=== PATIENT | female | born 1985 | race Caucasian/White ===

== ENCOUNTER → 2018-03-29 12:30 | Outpatient (CLI) | payer BC, SELFPAY ==
[2018-03-29 14:24] LABS: Hemoglobin A1c 5.5 % (4.2-6.3)
[2018-03-29 14:26] LABS: Thyroid Stim Hormone (TSH) 1.98 uIU/mL (0.358-3.74)
== END ==
PROVIDERS: Family Provider Family Medicine; PCP Family Medicine; Referring Provider Family Medicine; Visit Provider Family Medicine
DX: R63.5 Abnormal weight gain (principal)
CPT/HCPCS: 36415; 83036; 84443

== ENCOUNTER → 2018-10-02 11:54 | Outpatient (CLI) | payer OTHER, SELFPAY ==
--- NOTE | 2018-10-02 12:00 | US_ITS ---
STUDY: THYROID ULTRASOUND REASON FOR EXAM: Female, 33 years old. Thyromegaly. TECHNIQUE: Ultrasound evaluation of the thyroid was performed with real-time and static jha-scale imaging. COMPARISON: None. FINDINGS: RIGHT LOBE: The right lobe of the thyroid gland measures 5.2 x 1.6 x 1.4 cm. There is a homogeneous echotexture. 3 small well-defined hypoechoic, presumably cystic lesions are identified. The largest is in the lateral upper pole, measuring 6.1 x 4.4 x 3.7 mm and containing a small eccentric nodule. A second is in the anterior mid body of the gland, measuring 3.5 x 2.7 x 1.8 mm. A third is in the posterior mid to upper thyroid measuring 4 x 2.7 x 2.7 mm. This also has eccentric internal nodule. LEFT LOBE: The left lobe of the thyroid gland measures 5.0 x 1.7 x 1.6 cm. There is a homogeneous echotexture. 3 well-defined isoechoic, presumably cystic lesions are seen. One is in the mid to upper pole, measuring 6.0 x 4.1 x 4.2 mm, containing 2 small hyperechoic stones or nodules. A similar-appearing 4.2 x 4.0 x 4.4 mm lesion is seen at the tip of the lower pole. A third 5.2 x 2.8 x 4.1 mm hypoechoic lesion with 2 focal internal echogenicities seen at the posterior midpole. ISTHMUS: The isthmus measures 3 mm. The regional lymph nodes are normal. US/Thyroid IMPRESSION: Bilateral complicated cystic lesions in the thyroid gland, as described. Electronically Signed: Perfecto Cole MD at 19:57 EDT , Service support ,
== END ==
PROVIDERS: Family Provider Family Medicine; PCP Family Medicine; Referring Provider Family Medicine; Visit Provider Family Medicine
DX: E01.0 Iodine-deficiency related diffuse (endemic) goiter (principal)
CPT/HCPCS: 76536

== ENCOUNTER → 2018-10-15 08:43 | Outpatient (CLI) | payer OTHER, SELFPAY ==
--- NOTE | 2018-10-15 08:45 | NM_ITS ---
CLINICAL: 33-year-old female with reported history of thyroid nodularity. I-123 THYROID UPTAKE and SCAN COMPARISON: Thyroid ultrasound report 10/02/2018 FINDINGS: The patient was administered a 306 uCi I-123 capsule by mouth. The 4-hour I-123 radioactive iodine thyroidal uptake was calculated to be 15.9 % (normal 5 to 25 %). The 24-hour I-123 radioactive iodine thyroidal uptake was calculated to be 41.1 % (normal 5 to 40 %). The I-123 thyroid scan demonstrates homogeneous radiopharmaceutical concentration throughout both lobes of a prominent sized U-shaped thyroid gland. There are no colloidal parenchymal hypofunctioning-cold nodules noted in either lobe of the thyroid gland. NM/Thyroid Uptake Single or Mult IMPRESSION: 1. NORMAL 4- and MILDLY ELEVATED ABNORMAL 24-hour I-123 radioactive iodine thyroidal uptakes. 2. 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 Correlation with in vitro thyroid function studies is recommended. 3. There are no hypofunctioning-cold nodules demonstrated in the right and left thyroid lobes as described above. Electronically Signed: Long Allred DO at 23:20 EDT Tel , Service support ,
== END ==
PROVIDERS: Family Provider Family Medicine; PCP Family Medicine; Referring Provider Family Medicine; Visit Provider Family Medicine
DX: E04.1 Nontoxic single thyroid nodule (principal)
CPT/HCPCS: 78012; A9516

== ENCOUNTER → 2019-05-18 09:41 | Outpatient (CLI) | payer OTHER, SELFPAY ==
[2017-04-17 07:58] VITALS: BMI 32.8
[2019-05-18 10:36] LABS: Anion Gap 1 (5-15); BUN 11 mg/dL (7-18); BUN/Creat Ratio 11.8 RATIO (10-20); Calcium,Total 9.1 mg/dL (8.5-10.1); Chloride 106 mmol/L (98-107); Cholesterol 167 mg/dL (200); Creatinine, Serum 0.93 mg/dL (0.55-1.02); EST Glomerular Filtration Rate 74 mL/min (>60); Est Glom Filt Rate - Afr Amer 89 mL/min (>60); Glucose 89 mg/dL (74-106); High Density Lipoprotein 59 mg/dL; Potassium 4.3 mmol/L (3.5-5.1); Sodium Level 138 mmol/L (136-145); Thyroid Stim Hormone (TSH) 2.25 uIU/mL (0.358-3.74); Triglycerides 95 mg/dL; Very Low Density Lipoprotein 19 mg/dL (5-40)
== END ==
PROVIDERS: Family Provider Family Medicine; PCP Family Medicine; Referring Provider Family Medicine; Visit Provider Family Medicine
DX: E01.0 Iodine-deficiency related diffuse (endemic) goiter (principal); Z13.220 Encounter for screening for lipoid disorders; Z13.1 Encounter for screening for diabetes mellitus
CPT/HCPCS: 36415; 80048; 80061; 84443

== ENCOUNTER → 2019-05-20 11:57 | Outpatient (CLI) | payer OTHER, SELFPAY ==
[2017-04-17 07:58] VITALS: BMI 32.8
[2019-05-20 15:20] LABS: Vitamin D,25 Hydroxy 12.2 ng/mL (29.95-100.01)
== END ==
PROVIDERS: Family Provider Family Medicine; PCP Family Medicine; Referring Provider Family Medicine; Visit Provider Family Medicine
DX: Z13.21 Encounter for screening for nutritional disorder (principal)
CPT/HCPCS: 36415; 82306

== ENCOUNTER → 2019-06-07 15:19 | Outpatient (CLI) | payer OTHER, SELFPAY ==
[2017-04-17 07:58] VITALS: BMI 32.8
[2019-06-13 13:44] LABS: HPV Reflexed? NOT INDICATED
== END ==
PROVIDERS: Visit Provider Obstetrics & Gynecology
DX: Z12.4 Encounter for screening for malignant neoplasm of cervix (principal)
CPT/HCPCS: 88175; G0145

== ENCOUNTER → 2020-01-30 | Outpatient (CLI) | payer OTHER, SELFPAY ==
[2017-04-17 07:58] VITALS: BMI 32.8
[2020-01-30 12:50] LABS: Vitamin D,25 Hydroxy 41.8 ng/mL
== END | disposition home or self-care (01) ==
LOC: LAB 11:54
PROVIDERS: PCP Family Medicine; Referring Provider Family Medicine; Visit Provider Family Medicine
DX: E55.9 Vitamin D deficiency, unspecified (principal)
CPT/HCPCS: 36415; 82306

== ENCOUNTER → 2023-06-06 | Outpatient (CLI) | payer OTHER, SELFPAY ==
--- OUTSIDE RECORDS SUMMARY | 2023-06-06 12:40 | XMS RPT_ITS | CCD ---
Author Name Unknown Address [facility] [address] [place] [address] Organization [facility] Care Team Providers Care Stencil Inspector Name Role Phone HEATHER JULOI, DR OSPINA Primary Care Physician Unavailable Primary Care Provider Unavailabl e Allergies Allergy Classification Reported Allergen(s) Allergy Type Date of Onset Reaction(s) Facility (6 sources) Amoxicillin; Translations: [amoxicillin] Drug Allergy 12-10-2022 [facility] (2 sources) Iodine; Translations: [iodine] Drug Allergy [facility] Medications Current Medications Medication Drug Class(es) Dates Sig (Normalized) Sig (Original) M.V.I. Adult (2 sources) Start: 07-12-2016 M.V.I. Adult Start Date: 07/12/16 Status: Ordered oxyCODONE hydrochloride 5 mg oral tablet (1 source) Opioid Agonist Start: 07-03-2021 End: 07-05-2021 oxyCODONE 5 mg oral tablet ( IMMEDIATE release ) Dose : 5 mg = 1 tab(s), Oral, q6h, X 2 day(s), # 7 tab(s), 0 Refill(s), 07/05/21 22:12:00 EST, Elbow dislocation, 110 Start Date: 07/03/21 Stop Date: 07/05/21 Status: Ordered Completed/Discontinued Medications Medication Drug Class(es) Dates Sig (Normalized) Sig (Original) 24 hr buPROPion hydrochloride 150 mg extended release oral tablet (3 sources) Aminoketone Start: 11-07-2022 buPROPion XL (WELLBUTRIN XL) 150 mg 24 hr tablet escitalopram 10 mg oral tablet (3 sources) Serotonin Reuptake Inhibitor take 1 tablet by mouth once daily escitalopram oxalate (LEXAPRO) 10 mg tablet Take 10 mg by mouth once daily. 0 Active Problems Problem Classification Problem Date Documented Date Episodic/Chronic Immunizations and screening for infectious disease (2 sources) Patient encounter status; Translations: [Encounter for screening for infections with a predominantly sexual mode of transmission] Onset: 12-12-2022 12-10-2022 Episodic Joint disorders and dislocations; trauma-related (1 source) Dislocation of elbow joint; Translations: [Unspecified dislocation of unspecified ulnohumeral joint, initial encounter] Onset: 07-03-2021 Episodic Other female genital disorders (1 source) Vaginal lesion; Translations: [Other specified noninflammatory disorders of vagina] 12-10-2022 Episodic Other non-traumatic joint disorders (1 source) Elbow joint pain; Translations: [Pain in left elbow] Episodic Results Test Name Value Interpretation Reference Range Facil ity Vital Signs Date Time Vital Sign Value Performing Clinician Facility 12-10-2022 12:22-0400 Body temperature 97.39 [degF] Krislyn Aberegg PA Work Phone: [facility] 12-10-2022 12:22-0400 Body weight 105.51 kg Krislyn Aberegg PA Work Phone: [facility] 12-10-2022 12:22-0400 Diastolic blood pressure 80 mm[Hg] Krislyn Aberegg PA Work Phone: [facility] 12-10-2022 12:22-0400 Heart rate 81 /min Krislyn Aberegg PA Work Phone: [facility] 12-10-2022 12:22-0400 Respiratory rate 21 /min Krislyn Aberegg PA Work Phone: [facility] 12-10-2022 12:22-0400 SaO2% (BldA) [Mass fraction] 98 % Krislyn Aberegg PA Work Phone: [facility] 12-10-2022 12:22-0400 Systolic blood pressure 122 mm[Hg] Krislyn Aberegg PA Work Phone: [facility] 07-03-2021 20:57-0500 Body temperature 97.88 [degF] DR LEVI HOOKER MD [facility] 07-03-2021 20:57-0500 Body weight [address] LEVI HOOKER MD [facility] 07-03-2021 20:57-0500 Diastolic blood pressure 65 mm[Hg] DR LEVI HOOKER MD [facility] 07-03-2021 20:57-0500 Heart rate 64 /min DR LEVI HOOKER MD [facility] 07-03-2021 20:57-0500 Respiratory rate 18 /min DR LEVI HOOKER MD [facility] 07-03-2021 20:57-0500 Systolic blood pressure 105 mm[Hg] DR LEVI HOOKER MD [facility] Encounters Encounter Date Encounter Type Care Provider Facility Start: 12-13-2022 Telephone encounter Ceasar richardson APRN.[facility] Work Phone: [facility] Plan of Treatment Date Care Activity Detail Author Start: 01-27-2023 Influenza vaccination INFLUENZA (#1) [facility] Start: 12-10-2022 End: 02-09-2023 Hepatitis B virus surface Ag [Presence] in Serum HEP B SURF AG SCRN Lab Routine Screening for STD (sexually transmitted disease) Expected: 12/10/2022, Expires: 02/09/2023 [facility] Work Phone: Payers Date Payer Category Payer Private Health [facility] [employer] PPO [id number] 2022-Present [phone] [address] [place] [id number] [facility] [id number] 2022 Private Health Insurance [facility] [id number] Social History Date Type Detail Facility Start: 07-03-2021 Heavy tobacco smoker (finding) [facility] Sex Assigned At [facility] Start: 12-10-2022 Tobacco smoking stat [facility] Ex-smoker [facility] History of tobacco use Current smoker [facility] History of tobacco use Cigarette Smoker C [facility] History of tobacco use Passive smoker [facility] Start: 12-10-2022 Tobacco use and exposure Smokeless tobacco non-user [facility] Start: 12-10-2022 History of Social function [facility] Start: 12-10-2022 Tobacco use panel [facility] Start: 1985 Sex Assigned At Not on file C [facility] Note 12-13-2022 Telephone Encounter - Jenny Simons LPN - 12/13/2022 8:29 AM EDTTelephone Encounter - Jaclyn Bravo - 12/13/2022 8:06 AM EDTTelephone Encounter - Ceasar De La Torre APRN.[facility] - 12/13/2022 7:10 AM EDT Note Date & Type Note Facility 12-13-2022 Miscellaneous Notes Formattin g of this note might be different from the original. Pt was notified of results & voiced understanding. Jenny Simons LPN Left message for patient to return call. Jaclyn Bravo Please notify that syphilis, hep B/C, HIV were negative. F/u as discussed during visit. documented in this encounter [facility] Note 12-11-2022 Telephone Encounter - Lucero Ponce MA - 12/11/2022 9:32 AM EDTTelephone Encounter - Breana Lord LPN - 12/11/2022 9:14 AM EDT Note Date & Type Note Facility 12-11-2022 Miscellaneous Notes Formattin g of this note might be different from the original. Pt called back and was notified of the results. Pt verbalized understanding. Lucero Ponce MA Left message to return call Please let patient know she is negative for chlamydia, gonorrhea, trichomonas, Ethel and herpes. We are awaiting blood test results. documented in this encounter [facility] Progress note 12-10-2022 Note Date & Type Note Facility 12-10-2022 Note HNO ID: [id number] Author: BRADLEY Razo Service: ? Author Type: Physician Valet Service Attendant Type: Progress Notes Filed: 12/10/2022 12:36 PM Note Text: This note was created using [employer]. Subjective Lesli Cristobal is a 37 year old female. HPI 37-year-old female presents for STD check. Patient states that her significant other has a bump on his penis and she is concerned it may be herpes. Patient states that she had a small bump about a week ago, but it is now improved. She thought it was just a cut from shaving. She states that she has not had any drainage. No vaginal discharge. She denies any history of herpes or STDs. No concern for , has an IUD. No other complaints. Review of Systems Constitutional: Negative for chills and fever. HENT: Negative for congestion, ear pain and sore throat. Respiratory: Negative for cough and shortness of breath. Cardiovascular: Negative for chest pain. Gastrointestinal: Negative for diarrhea and vomiting. Genitourinary: Positive for genital sores (Small bump that has resolved in the past week.). Negative for difficulty urinating, dysuria, urgency, vaginal bleeding, vaginal discharge and vaginal pain. Objective BP 122/80 Pulse 81 Temp 36.3 ?C (97.4 ?F) Resp 21 Wt 105.5 kg (232 lb 9.6 oz) SpO2 98% Physical Exam Vitals and nursing note reviewed. Exam conducted with a bit setter present. Constitutional: General: She is not in acute distress. Appearance: Normal appearance. She is not toxic-appearing. Cardiovascular: Rate and Rhythm: Normal rate and regular rhythm. Pulmonary: Effort: Pulmonary effort is normal. Breath sounds: Normal breath sounds. Genitourinary: Pubic Area: No rash. Labia: Right: No rash or lesion. Left: No rash or lesion. Vagina: Vaginal discharge (Small amount of physiologic discharge present) present. No erythema or tenderness. Cervix: No cervical motion tenderness. Adnexa: Right adnexa normal and left adnexa normal. Comments: Small amount of white physiologic vaginal discharge. No CMT. No adnexal tenderness. IUD strings in place. Small bump noted on mons pubis appears more like a scarred area. No vesicular lesions present Skin: General: Skin is warm and dry. Neurological: Mental Status: She is alert. Assessment and Plan ASSESSMENT/PLAN: 1. Screening for STD (sexually transmitted disease) - ICD9: V74.5, ICD10: Z11.3 (primary diagnosis) -Denies concern for . Has IUD. No symptoms. -Treat based on results. - GONORRHEA/CHLAMYDIA NAAT - SYPHILIS TOTAL W/REFLEX - HIV 1 2 COMBO(AG/AB),WITH REFLEX TO DIFFERENTIATION - HEPATITIS C ANTIBODY IA WITH CONFIRMATION - HEP B SURF AG SCRN - HSV1,2/VZV NAAT LESION - ETHEL/TRICHOMONAS NAAT 2. Vaginal lesion - ICD9: 623.8, ICD10: N89.8 -Small scarlike lesion over upper mons pubis area. Patient states has been present for a week and is improving. Did swab this area for herpes as her significant other has genital lesions currently. -Await result. Out of viral window for treatment. -Advised if any new lesions, return for evaluation and treatment. Diagnosis and treatment plan were discussed and questions were answered to the patient's satisfaction. Pt acknowledged understanding of concepts and follow up plan. Specific signs and symptoms that would indicate the need for higher level of care were discussed in detail warranting prompt ER evaluation. BRADLEY Razo [facility] History of Present illness Narrative 12-10-2022 Jessica Brady PA - 12/10/2022 12:31 PM EDT Note Date & Type Note Facility 12-10-2022 History of Presen t illness Narrative Images from the original note were not included. This note was created using [employer]. Subjective Lesli Cristobal is a 37 year old female. HPI 37-year-old female presents for STD check. Patient states that her significant other has a bump on his penis and she is concerned it may be herpes. Patient states that she had a small bump about a week ago, but it is now improved. She thought it was just a cut from shaving. She states that she has not had any drainage. No vaginal discharge. She denies any history of herpes or STDs. No concern for , has an IUD. No other complaints. Review of Systems Constitutional: Negative for chills and fever. HENT: Negative for congestion, ear pain and sore throat. Respiratory: Negative for cough and shortness of breath. Cardiovascular: Negative for chest pain. Gastrointestinal: Negative for diarrhea and vomiting. Genitourinary: Positive for genital sores (Small bump that has resolved in the past week.). Negative for difficulty urinating, dysuria, urgency, vaginal bleeding, vaginal discharge and vaginal pain. Objective BP 122/80 Pulse 81 Temp 36.3 C (97.4 F) Resp 21 Wt 105.5 kg (232 lb 9.6 oz) SpO2 98% Physical Exam Vitals and nursing note reviewed. Exam conducted with a bit setter present. Constitutional: General: She is not in acute distress. Appearance: Normal appearance. She is not toxic-appearing. Cardiovascular: Rate and Rhythm: Normal rate and regular rhythm. Pulmonary: Effort: Pulmonary effort is normal. Breath sounds: Normal breath sounds. Genitourinary: Pubic Area: No rash. Labia: Right: No rash or lesion. Left: No rash or lesion. Vagina: Vaginal discharge (Small amount of physiologic discharge present) present. No erythema or tenderness. Cervix: No cervical motion tenderness. Adnexa: Right adnexa normal and left adnexa normal. Comments: Small amount of white physiologic vaginal discharge. No CMT. No adnexal tenderness. IUD strings in place. Small bump noted on mons pubis appears more like a scarred area. No vesicular lesions present Skin: General: Skin is warm and dry. Neurological: Mental Status: She is alert. Assessment and Plan ASSESSMENT/PLAN: 1. Screening for STD (sexually transmitted disease) - ICD9: V74.5, ICD10: Z11.3 (primary diagnosis) -Denies concern for . Has IUD. No symptoms. -Treat based on results. - GONORRHEA/CHLAMYDIA NAAT - SYPHILIS TOTAL W/REFLEX - HIV 1 2 COMBO(AG/AB),WITH REFLEX TO DIFFERENTIATION - HEPATITIS C ANTIBODY IA WITH CONFIRMATION - HEP B SURF AG SCRN - HSV1,2/VZV NAAT LESION - ETHEL/TRICHOMONAS NAAT 2. Vaginal lesion - ICD9: 623.8, ICD10: N89.8 -Small scarlike lesion over upper mons pubis area. Patient states has been present for a week and is improving. Did swab this area for herpes as her significant other has genital lesions currently. -Await result. Out of viral window for treatment. -Advised if any new lesions, return for evaluation and treatment. Diagnosis and treatment plan were discussed and questions were answered to the patient's satisfaction. Pt acknowledged understanding of concepts and follow up plan. Specific signs and symptoms that would indicate the need for higher level of care were discussed in detail warranting prompt ER evaluation. BRADLEY Razo documented in this encounter [facility] Discharge instructions 07-04-2021 Note Date & Type Note Facility 07-04-2021 Hospital Discharg e instructions Patient Education 07/03/2021 22:19:29 ED Moderate (Conscious) Sedation (03/2018) (Custom) Adult Moderate (Conscious) Sedation Discharge Instructions Refer to this sheet in the next few weeks. These instructions provide you with information on caring for yourself after your procedure. Your health care provider may also give you more specific instructions. Your treatment has been planned according to current medical practices, but problems sometimes occur. Call your health care provider if you have any problems or questions after your procedure. WHAT TO EXPECT AFTER THE PROCEDURE After your procedure: You may feel sleepy, clumsy, and have poor balance for several hours. Vomiting may occur if you eat too soon after the procedure. HOME CARE INSTRUCTIONS Do not participate in any activities where you could become injured for at least 24 hours. Do not: ? Drive. ? Swim. ? Ride a bicycle. ? Operate heavy machinery. ? Cook. ? Use power tools. ? Climb ladders. ? Work from a high place. Do not make important decisions or sign legal documents until you are improved. If you vomit, drink water, juice, or soup when you can drink without vomiting. Make sure you have little or no nausea before eating solid foods. Only take moqn-nqq-nbopjqn or prescription medicines for pain, discomfort, or fever as directed by your health care provider. Make sure you and your family fully understand everything about the medicines given to you, including what side effects may occur. You should not drink alcohol, take sleeping pills, or take medicines that cause drowsiness for at least 24 hours. If you smoke, do not smoke without supervision. If you are feeling better, you may resume normal activities 24 hours after you were sedated. Keep all appointments with your health care provider. SEEK MEDICAL CARE IF: Your skin is pale or bluish in color. You continue to feel nauseous or vomit. Your pain is getting worse and is not helped by medicine. You have bleeding or swelling. You are still sleepy or feeling clumsy after 24 hours. SEEK IMMEDIATE MEDICAL CARE IF: You develop a rash. You have difficulty breathing. You develop any type of allergic problem. You have a fever. MAKE SURE YOU: Understand these instructions. Will watch your condition. Will get help right away if you are not doing well or get worse. Document Released: 03/05/2014 Document Reviewed: 03/05/2014 ExitCare Patient Information 2015 [email or web address]. This information is not intended to replace advice given to you by your health care provider. Make sure you discuss any questions you have with your health care provider. 07/03/2021 22:19:29 Elbow Dislocation Elbow Dislocation An elbow dislocation may occur after a fall onto an outstretched arm or in a car accident. When the hand hits a hard surface, the force is sent to the elbow. This tears ligaments and forces the bones out of the joint. Usually no bones are broken. But the nearby nerves and blood vessels can be damaged. Once the joint is put back in place, it will take about 6 weeks for the ligaments to heal. For simple dislocations, you will use a splint or sling for the first few weeks. You will need elgas-ev-ughywt exercises or physical therapy early in your recovery. This will prevent the elbow joint from getting stiff. Later, you may need strengthening exercises. In more severe cases, you may need surgery to realign the joint and repair the torn ligaments or broken bones. Most elbow dislocations heal fully. But there is some risk for arthritis or loss of full range of motion in that joint. Home care Follow these guidelines when caring for yourself at home: Keep your arm elevated to reduce pain and swelling. When sitting or lying down keep your arm above the level of your heart. You can do this by placing your arm on a pillow that rests on your chest or on a pillow at your side. This is most important during the first 2 days (48 hours) after the injury. Put an ice pack on the injured area. Do this for 20 minutes every 1 to 2 hours the first day. You can make an ice pack by wrapping a plastic bag of ice cubes in a thin towel. As the ice melts, be careful that the cast or splint doesn t get wet. You can put the ice pack inside the sling and directly over the splint or cast. Continue using the ice pack 3 to 4 times a day for the next 2 days. Then use the ice pack as needed to ease pain and swelling. Keep the splint or cast completely dry at all times. Bathe with your splint or cast out of the water. Protect it with a large plastic bag, rubber-banded at the top end. If a fiberglass splint or cast gets wet, you can dry it with a behavioral sciences department chair on the cool setting. You may use acetaminophen or ibuprofen to control pain, unless another pain medicine was prescribed. If you have chronic liver or kidney disease, talk with your healthcare provider before using these medicines. Also talk with your provider if you ve had a stomach ulcer or gastrointestinal bleeding. Don t take part in sports or physical education until your healthcare provider says it s OK to do so. Follow-up care Follow up with your healthcare provider in 1 week, or as advised. Ask your provider when to start ijqyi-wp-xgqmxg exercises. These will keep the elbow from getting stiff. If X-rays were taken, a radiologist may look at them. You will be told of any new findings that may affect your care. When to seek medical advice Call your healthcare provider right away if any of these occur: The plaster splint or cast becomes wet or soft The fiberglass splint or cast stays wet for more than 24 hours Tightness or pain in the elbow gets worse Fingers become swollen, cold, blue, numb, or tingly You can t move your elbow as much as you could [id number] [employer]. [address] [place] [address]. All rights reserved. This information is not intended as a substitute for professional medical care. Always follow your healthcare professional's instructions. Follow Up Care 07/03/2021 20:55:45 With:TAMIKA LLANES Address: [address] [place] [address], [address] [place] [address]- [phone] Business (1) When:5-7 days Comments:Department splint and sling, use Tylenol ibuProfen ice for pain. You may use oxycodone as needed for breakthrough pain. Follow-up with orthopedics, return if any worsening concerning symptoms such as numbness or weakness of the hand. [facility] Evaluation + Plan note Note Date & Type Note Facility Evaluation + Plan note No data available for this section [facility] Evaluation note Note Date & Type Note Facility documented in this encounter [facility] Discharge instructions Note Date & Type Note Facility Hospital Discharge instructions No data available for this section [facility] Progress note Note Date & Type Note Facility Progress note No data available for this section [facility] Summary Purpose Family History No Family History Records FoundNo Family History Records Found Advance Directives No Advanced Directives Records FoundNo Advanced Directives Records Found Additional Source Comments Care Team (unrecognized sect ion and content) Personnel Name: ANAI ROMERO MD Address: [address] [place] [address] INFORMATION SOURCE (unrecogn ized section and content) DATE CREATED AUTHOR AUTHOR'S VETO ATION 12/13/2022 [facility] Source Comments (unrecognize d section and content) In the event this informatio n is protected by the Federal Confidentiality of Alcohol and Drug Abuse Patient Records regulations: The Federal rules restrict any use of the information to criminally investigate or prosecute any alcohol or drug abuse patient.[facility] the event this information is protected by the Federal Confidentiality of Alcohol and Drug Abuse Patient Records regulations: The Federal rules restrict any use of the information to criminally investigate or prosecute any alcohol or drug abuse patient.[facility] the event this information is protected by the Federal Confidentiality of Alcohol and Drug Abuse Patient Records regulations: The Federal rules restrict any use of the information to criminally investigate or prosecute any alcohol or drug abuse patient.[facility] Reason for Visit (unrecogniz ed section and content) Reason Comments Results FOR RECORDS PERTAINING TO PATIENTS WHO ARE OR HAVE BEEN ENROLLED IN A CHEMICAL DEPENDENCY/SUBSTANCEABUSE PROGRAM, SOME INFORMATION MAY BE OMITTED. This clinical summary was aggregated from multiple sources. Caution should be exercised in using it in the provision of clinical care. This summary normalizes information from multiple sources, and as a consequence, information in this document may materially change the coding, format and clinical context of patient data. In addition, data may be omitted in some cases. CLINICAL DECISIONS SHOULD BE BASED ON THE PRIMARY CLINICAL RECORDS. [facility]. provides no warranty or guarantee of the accuracy or completeness of information in this document.
[2023-06-06 13:59] LABS: Cholesterol 193 mg/dL (200); High Density Lipoprotein 64 mg/dL; Thyroid Stim Hormone (TSH) 2.55 uIU/mL (0.358-3.74); Triglycerides 122 mg/dL; Very Low Density Lipoprotein 24 mg/dL (5-40)
[2023-06-08 04:07] LABS: Thyroid Peroxidase AB < 9 IU/mL (0-34)
== END | disposition home or self-care (01) ==
PROVIDERS: PCP Family Medicine; Referring Provider Family Medicine; Visit Provider Family Medicine
DX: Z13.220 Encounter for screening for lipoid disorders (principal)
CPT/HCPCS: 36415; 80061; 84443; 86376

== ENCOUNTER → 2023-06-16 | Outpatient (CLI) | payer OTHER, SELFPAY ==
--- OUTSIDE RECORDS SUMMARY | 2023-06-16 12:01 | XMS RPT_ITS | CCD ---
Author Name Unknown Address [facility] [address] [place] [address] Organization [facility] Care Team Providers Care Professional Shopper Name Role Phone HEATHER JULIO, DR OSPINA Primary Care Physician [phone] Unavailable Primary Care Provider Unavailabl e Allergies Allergy Classification Reported Allergen(s) Allergy Type Date of Onset Reaction(s) Facility (6 sources) Amoxicillin; Translations: [amoxicillin] Drug Allergy 12-10-2022 [facility] (2 sources) Iodine; Translations: [iodine] Drug Allergy [facility] Medications Current Medications Medication Drug Class(es) Dates [...] 97.39 [degF] Krislyn Aberegg PA Work Phone: [facility] 12-10-2022 12:22-0400 Body weight 105.51 kg Krislyn Aberegg PA Work Phone: [facility] 12-10-2022 12:22-0400 Diastolic blood pressure 80 mm[Hg] Krislyn Aberegg PA Work Phone: [facility] 12-10-2022 12:22-0400 Heart rate 81 /min Krislyn Aberegg PA Work Phone: [facility] 12-10-2022 12:22-0400 Respiratory rate 21 /min Krislyn Aberegg PA Work Phone: [facility] 12-10-2022 12:22-0400 SaO2% (BldA) [Mass fraction] 98 % Krislyn Aberegg PA Work Phone: [facility] 12-10-2022 12:22-0400 Systolic blood pressure 122 mm[Hg] Krislyn Aberegg PA Work Phone: [facility] 07-03-2021 20:57-0500 Body temperature 97.88 [degF] DR LEVI HOOKER MD [facility] 07-03-2021 20:57-0500 Body weight [address] LEVI HOOKER MD [facility] 07-03-2021 20:57-0500 Diastolic blood pressure 65 mm[Hg] DR LEVI HOOKER MD [facility] 07-03-2021 20:57-0500 Heart rate 64 /min DR LEVI HOOKER MD [facility] 07-03-2021 20:57-0500 Respiratory rate 18 /min DR LEVI HOOKER MD [facility] 07-03-2021 20:57-0500 Systolic blood pressure 105 mm[Hg] DR LEVI HOOKER MD [facility] Encounters Encounter Date Encounter Type Care Provider Facility Start: 12-13-2022 Telephone encounter Ceasar richardson APRN.[facility] Work Phone: [facility] Plan of Treatment Date Care Activity Detail Author Start: 01-27-2023 Influenza vaccination INFLUENZA (#1) [facility] Start: 12-10-2022 End: 02-09-2023 Hepatitis B virus surface Ag [Presence] in Serum HEP B SURF AG [facility] Lab Routine Screening for STD (sexually transmitted disease) Expected: 12/10/2022, Expires: 02/09/2023 [facility] Work Phone: Payers Date Payer Category Payer Private Health Insurance [employer] PPO [id number] 2022-Present [phone] [address] [place] [id number] [facility] [id number] 2022 Private Health Insurance [facility] [id number] Social History Date Type Detail Facility Start: 07-03-2021 Heavy tobacco smoker (finding) [facility] Sex Assigned At [facility] Start: 12-10-2022 Tobacco smoking stat [facility] Ex-smoker [facility] History of tobacco use Current smoker [facility] History of tobacco use Cigarette Smoker C [facility] History of tobacco use Passive smoker [facility] Start: 12-10-2022 Tobacco use and exposure Smokeless tobacco non-user [facility] Start: 12-10-2022 History of Social function [facility] Start: 12-10-2022 Tobacco use panel [facility] Start: 1985 Sex Assigned At Not on file C [facility] Note 12-13-2022 Telephone Encounter - Jenny Simons LPN - 12/13/2022 8:29 AM EDTTelephone Encounter - Jaclyn Bravo - 12/13/2022 8:06 AM EDTTelephone Encounter - Ceasar De La Torre APRN.STATISTICAL METHODS TEACHER - 12/13/2022 7:10 AM EDT Note Date & Type Note Facility 12-13-2022 Miscellaneous Notes Formattin g of this note might be different from the original. Pt was notified of results & voiced understanding. Jenny Simons LPN Left message for patient to return call. Jaclyn Bravo Please notify that syphilis, hep B/C, HIV were negative. F/u as discussed during visit. documented in this encounter [facility] Note 12-11-2022 Telephone Encounter - Lucero Ponce [...] blood test results. documented in this encounter [facility] Progress note 12-10-2022 Note Date & Type Note Facility 12-10-2022 Note HNO ID: [id number] Author: BRADLEY Razo Service: ? Author Type: Physician Public Health Outreach Worker Type: Progress Notes Filed: 12/10/2022 12:36 PM Note Text: This note was created using iSpecimenriter. Subjective Lesli Cristobal is a 37 year [...] nursing note reviewed. Exam conducted with a licensing court magistrate present. Constitutional: General: She is not in [...] detail warranting prompt ER evaluation. BRADLEY Razo [facility] History of Present illness Narrative 12-10-2022 Jessica Brady PA - 12/10/2022 12:31 PM EDT Note Date & Type Note Facility 12-10-2022 History of Presen t illness Narrative Images from the original note were not included. This note was created using [employer]. Subjective Lesli Cristobal is a 37 year [...] nursing note reviewed. Exam conducted with a licensing court magistrate present. Constitutional: General: She is not in [...] evaluation. BRADLEY Razo documented in this encounter [facility] Discharge instructions 07-04-2021 Note Date & [...] nausea before eating solid foods. Only take mprp-lvt-ipttnkq or prescription medicines for pain, discomfort, or [...] worse. Document Released: 03/05/2014 Document Reviewed: 03/05/2014 [facility] Patient Information 2015 [employer]. This information is not intended to replace [...] the first few weeks. You will need qxhno-kp-yratmc exercises or physical therapy early in your [...] wet, you can dry it with a chair and couch maker on the cool setting. You may use [...] advised. Ask your provider when to start hiohs-fl-qihnur exercises. These will keep the elbow from [...] your elbow as much as you could [id number] [employer]. [address] [place] [address]. All rights reserved. This information is not intended as a substitute for professional medical care. Always follow your healthcare professional's instructions. Follow Up Care 07/03/2021 20:55:45 With:TAMIKA LLANES Address: [address] [place] [address], [address] [place] [address]- [phone] Business (1) When:5-7 days Comments:Department splint and sling, use Tylenol ibuProfen ice for pain. You may use oxycodone as needed for breakthrough pain. Follow-up with orthopedics, return if any worsening concerning symptoms such as numbness or weakness of the hand. [facility] Evaluation + Plan note Note Date & Type Note Facility Evaluation + Plan note No data available for this section [facility] Evaluation note Note Date & Type Note Facility documented in this encounter [facility] Discharge instructions Note Date & Type Note Facility Hospital Discharge instructions No data available for this section [facility] Progress note Note Date & Type Note Facility Progress note No data available for this section [facility] Summary Purpose Family History No Family History Records FoundNo Family History Records Found Advance Directives No Advanced Directives Records FoundNo Advanced Directives Records Found Additional Source Comments Care Team (unrecognized sect ion and content) Personnel Name: ANAI ROMERO MD Address: [address] [place] [address] INFORMATION SOURCE (unrecogn ized section and content) DATE CREATED AUTHOR AUTHOR'S VETO ATION 12/13/2022 [facility] Source Comments (unrecognize d section and content) In the event this informatio n is protected by the Federal Confidentiality of Alcohol and Drug Abuse Patient Records regulations: The Federal rules restrict any use of the information to criminally investigate or prosecute any alcohol or drug abuse patient.[facility] the event this information is protected by the Federal Confidentiality of Alcohol and Drug Abuse Patient Records regulations: The Federal rules restrict any use of the information to criminally investigate or prosecute any alcohol or drug abuse patient.[facility] the event this information is protected by the Federal Confidentiality of Alcohol and Drug Abuse Patient Records regulations: The Federal rules restrict any use of the information to criminally investigate or prosecute any alcohol or drug abuse patient.[facility] Reason for Visit (unrecogniz ed section and [...] BE BASED ON THE PRIMARY CLINICAL RECORDS. [facility]. provides no warranty or guarantee of the accuracy or completeness of information in this document.
[2023-06-16 15:52] LABS: Hematocrit 40.1 % (37-47); Hemoglobin 13.4 g/dL (12.0-15.0); Mean Corp Hgb Conc 33.4 g/dL (32-36); Mean Corpuscular Hgb 30.9 pg (27.0-32.0); Mean Corpuscular Volume 92.4 fL (81-99); Mean Platelet Vol. 10.8 fl (6.2-12.0); Platelet Count 317 K/mm3 (150-450); RBC Distribution Width SD 41.3 fl (35.1-43.9); Red Blood Count 4.34 M/mm3 (4.2-5.4); White Blood Count 10.3 K/mm3 (4.4-11.0)
[2023-06-16 15:53] LABS: Erythrocyte Sedimentation Rate 2 mm/hr (0-30)
[2023-06-16 16:14] LABS: Vitamin B12 297 pg/mL (211-911)
[2023-06-16 16:15] LABS: Anion Gap 6 (5-15); BUN 7 mg/dL (7-18); BUN/Creat Ratio 7.9 RATIO (10-20); Calcium,Total 8.9 mg/dL (8.5-10.1); Chloride 103 mmol/L (98-107); Creatinine, Serum 0.89 mg/dL (0.55-1.02); EST Glomerular Filtration Rate 76 mL/min (>60); Est Glom Filt Rate - Afr Amer 92 mL/min (>60); Ferritin 50 ng/mL (8-252); Free T3 2.8 pg/mL (2.18-3.98); Glucose 91 mg/dL (74-106); Iron 108 ug/dL (50-170); Sodium Level 136 mmol/L (136-145); T4 Free Direct 0.87 ng/dL (0.76-1.46)
== END | disposition home or self-care (01) ==
LOC: MFPLAB 11:50
PROVIDERS: PCP Family Medicine; Visit Provider Family Medicine
DX: E01.0 Iodine-deficiency related diffuse (endemic) goiter (principal); L65.9 Nonscarring hair loss, unspecified; Z13.1 Encounter for screening for diabetes mellitus
CPT/HCPCS: 36415; 80048; 82607; 82728; 83540; 84439; 84481; 85027; 85652

== ENCOUNTER → 2023-11-24 | Outpatient (CLI) | payer OTHER, SELFPAY ==
--- NOTE | 2023-11-24 17:29 | US_ITS ---
STUDY: THYROID ULTRASOUND REASON FOR EXAM: Female, 38 years old. Palpable nodules TECHNIQUE: Ultrasound evaluation of the thyroid was performed with real-time and static jha-scale imaging. COMPARISON: 10/02/2018 FINDINGS: RIGHT LOBE: The right lobe of the thyroid gland measures 5.1 x 1.5 x 1.4 cm. There is a homogeneous echotexture. Stable subcentimeter simple colloid cysts noted, largest measures 0.5 cm. Nodules are cystic or nearly completely cystic. TI-RADS points: 0. TI-RADS category: TR1. This nodule is benign and no FNA or follow-up is necessary. LEFT LOBE: The left lobe of the thyroid gland measures 4.8 x 1.6 x 1.5 cm. There is a homogeneous echotexture. Stable colloid cysts, largest measures 0.7 cm. Nodules are cystic or nearly completely cystic. TI-RADS points: 0. TI-RADS category: TR1. This nodule is benign and no FNA or follow-up is necessary. ISTHMUS: The isthmus measures 3 mm. The regional lymph nodes are normal. US/Thyroid IMPRESSION: Thyroid gland is homogeneous with borderline enlargement of the right thyroid lobe. 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 No suspicious solid lesion, no specific follow-up needed Electronically Signed: Perfecto Ta MD at 23:45 EDT ,
== END | disposition home or self-care (01) ==
LOC: US 17:26
PROVIDERS: PCP Family Medicine; Referring Provider Family Medicine; Visit Provider Family Medicine
DX: E04.9 Nontoxic goiter, unspecified (principal)
CPT/HCPCS: 76536